=== PATIENT | female | born 1995 | race African-American/Black ===

== ENCOUNTER 2020-02-22 01:33 | Emergency (ER) | payer SELFPAY ==
--- NOTE | 2020-02-22 01:47 | PDOC ---
History of Present Illness - General Stated Complaint: DIFFICULTY BREATHING/ASTHMA Time Seen by Provider: 02/22/20 01:46 - History of Present Illness Initial Comments: 02/22/20 01:47 HPI: 24 y/o F with hx of asthma recently moved from [place] 1 month ago presenting with asthma exacerbation. She reports being exposed to more pollen in the air here and the animal dander at her moms house. She reports SOB, dry cough, and wheezing and requiring increased albuterol puffs. She denies fever, chills, GALEANA, chest pain, abd pain, n/v PMHx: as noted above ROS: as noted SHx: Denies tobacco use; no alcohol use; +MJ rec drugs Allergies: NKDA ROS: GENERAL/CONSTITUTIONAL: No fever or chills. No weakness. HEAD, EYES, EARS, NOSE AND THROAT: No change in vision. No ear pain or discharge. No sore throat. CARDIOVASCULAR: No chest pain; + shortness of breath RESPIRATORY: +cough, wheezing GASTROINTESTINAL: No nausea, vomiting, diarrhea or constipation. GENITOURINARY: No dysuria, frequency, or change in urination. MUSCULOSKELETAL: No joint or muscle swelling or pain. No neck or back pain. SKIN: No rash NEUROLOGIC: No headache, vertigo, loss of consciousness, or change in strength/sensation. ENDOCRINE: No increased thirst. No abnormal weight change HEMATOLOGIC/LYMPHATIC: No anemia, easy bleeding, or history of blood clots. ALLERGIC/IMMUNOLOGIC: No hives or skin allergy. PE: GENERAL: Awake, alert, and fully oriented, no acute distress HEAD: No signs of trauma, normocephalic, atraumatic EYES: EOMI, sclera anicteric, conjunctiva clear ENT: Auricles normal inspection, hearing grossly normal, nares patent, oropharynx clear without exudates. Moist mucosa NECK: Normal ROM, no lymphadenopathy LUNGS: No increased work of breathing, symmetrical chest rise, diffuse BL wheezing HEART: Regular rate, regular rhythm, normal S1 and S2, no murmur, peripheral pulses 2+ and equal bilaterally. ABDOMEN: Soft, nondistended, nontender. No guarding, no rebound. No masses. No CVAT MUSCULOSKELETAL: FROM NEUROLOGICAL: Cranial nerves II through XII grossly intact. Normal speech, stable gait, no focal sensorimotor deficits SKIN: Warm, Dry, normal turgor, no rashes or lesions noted Past History - Medical History Allergies/Adverse Reactions: Allergies Allergy/AdvReac Type Severity Reaction Status Date / Time No Known Allergies Allergy Verified 02/22/20 02:28 Home Medications: Ambulatory Orders Albuterol Sulfate 0.042% [Ventolin 0.042% (Half-Strength) -] 02/22/20 Albuterol Sulfate Inhaler - [Ventolin HFA Inhaler -] 1 - 2 inh PO QID #1 inhaler 02/22/20 Azithromycin 250 mg PO DAILY 4 Days #4 tablet 02/22/20 predniSONE [Deltasone -] 40 mg PO DAILY 4 Days #8 tablet 02/22/20 Medical Decision Making - Medical Decision Making 02/22/20 04:26 24 y/o F with hx of asthma recently moved from [place] 1 month ago presenting with asthma exacerbation. VSS, AF. PE with diffuse BL wheezing. -shay hand x2, prednisone, siungular 02/22/20 04:27 wheezing and sxs improved following intervention DC with scripts for steroid, albuterol, abx rec f/u with pcp Discharge - Discharge Information Problems reviewed: Yes Clinical Impression/Diagnosis: Asthma Condition: Improved Disposition: HOME - Additional Discharge Information Prescriptions: Azithromycin 250 mg PO DAILY 4 Days #4 tablet predniSONE [Deltasone -] 40 mg PO DAILY 4 Days #8 tablet Albuterol Sulfate Inhaler - [Ventolin HFA Inhaler -] 1 - 2 inh PO QID #1 inhaler - Follow up/Referral - Patient Discharge Instructions Patient Printed Discharge Instructions: DI for Asthma -- Adult, Diet High in Fruits and Vegetables May Reduce Asthma Exacerbations Additional Instructions: Additional Instructions: Please return to the emergency department with any new or worsening symptoms or concerns including fever, worsening cough, worsening shortness of breath. Please follow up with your primary care physician within 72 hours. Please take prednisone 40mg daily for 4 days Please take azithromycin 250mg daily for 4 days Please take your albuterol inhaler per label instructions - Post Discharge Activity
[2020-02-22] MEDS ORDERED: methylPREDNISolone NA SUCC 125 MG/2 ML VIAL IVPUSH ONE (01:57)
[2020-02-22] MEDS ORDERED: ALBUTEROL SO4 2.5/IPRATROPIUM 0.5 INH SOL 3 ML VIAL.NEB. NEB ONE ×4 (01:57→03:51)
--- NOTE | 2020-02-22 01:58 | PDOC ---
Attending Attestation - Resident Resident Name: Chely Hoffmann - ED Attending Attestation I have performed the following: I have examined & evaluated the patient, The case was reviewed & discussed with the resident, I agree w/resident's findings & plan - HPI HPI: 02/22/20 02:03 Pt comes with asthma exacerbation. She moved in with mom; was living down in [place]. Now that she is here, she thimks the weather and cold and rain is causing her asthma to be exacerbated. Patient smokes pot too, which probably is not helping. We discussed the need for her to quit. - Physicial Exam PE: 02/22/20 03:03 Pt has wheezing throughout bilateral lung bradley. Pt is obese. Pt has no fever and no SOB; no audible wheeze, She is sepaking in full sentences. - Medical Decision Making 02/22/20 04:16 Pt feeling vastly improved with treatment in the ER and she will be given refill of meds. 02/22/20 04:21 Stable to go home Discharge - Discharge Information Problems reviewed: Yes Clinical Impression/Diagnosis: Asthma Condition: Improved Disposition: HOME - Additional Discharge Information Prescriptions: Azithromycin 250 mg PO DAILY 4 Days #4 tablet predniSONE [Deltasone -] 40 mg PO DAILY 4 Days #8 tablet Albuterol Sulfate Inhaler - [Ventolin HFA Inhaler -] 1 - 2 inh PO QID #1 inhaler - Follow up/Referral - Patient Discharge Instructions Patient Printed Discharge Instructions: Diet High in Fruits and Vegetables May Reduce Asthma Exacerbations - Post Discharge Activity
--- OUTSIDE RECORDS SUMMARY | 2020-02-22 01:59 | XMS ---
:1995 Author Organization [facility] Support Name Relationship Address Phone LOY Unavailable [address] [place] [address] LUIS MOTT MOTHER [address] [place] [address] Re-disclosure Warning The records that you are about to access may contain information from federally- assisted alcohol or drug abuse programs. If such information is present, then the following federally mandated warning applies: This information has been disclosed to you from records protected by federal confidentiality rules (42 CFR part 2). The federal rules prohibit you from making any further disclosure of this information unless further disclosure is expressly permitted by the written consent of the person to whom it pertains or as otherwise permitted by 42 CFR part 2. A general authorization for the release of medical or other information is NOT sufficient for this purpose. The Federal rules restrict any use of the information to criminally investigate or prosecute any alcohol or drug abuse patient.The records that you are about to access may contain highly sensitive health information, the redisclosure of which is protected by Article 27-F of the [facility] Public Health law. If you continue you may haveaccess to information: Regarding HIV / AIDS; Provided by facilities licensed or operated by the [facility] Office of Mental Health; or Provided by the [facility] Office for People With Developmental Disabilities. If such information is present, then the following [facility] mandated warning applies: This information has been disclosed to you from confidential records which are protected by state law. State law prohibits you from making any further disclosure of this information without the specific written consent of the person to whom it pertains, or as otherwise permitted by law. Any unauthorized further disclosure in violation of state law may result in a fine or usp sentence or both. A general authorization for the release of medical or other information is NOT sufficient authorization for further disclosure. Insurance Providers Payer name Policy type Policy ID Covered Covered constitution party's Policy P anival / Coverage constitution party ID relationship to Victor Inf ormation type victor SELF PAY SP INSURANCE
[2020-02-22] MEDS ORDERED: MONTELUKAST NA 10 MG TABLET PO ONE (02:02)
[2020-02-22] MEDS ORDERED: AZITHROMYCIN 500 MG TABLET PO ONE (02:10)
[2020-02-22] MEDS ORDERED: predniSONE 20 MG TABLET (UD) PO ONE (02:10)
[2020-02-22] MEDS ORDERED: MONTELUKAST NA 10 MG TABLET ONE (02:17)
[2020-02-22] MEDS ORDERED: AZITHROMYCIN IVPB 500 MG/250 ML BAG IVPB ONE (02:19)
[2020-02-22] MEDS ORDERED: AZITHROMYCIN 250 MG TABLET ONE (02:20)
[2020-02-22 02:26] VITALS: BP 120/68; PULSE 92; TEMP 98.3; BMI 39.4
== END 2020-02-22 04:22 | disposition home or self-care (01) ==
LOC: JER 01:33
PROC: 3E033NZ Introduction of Analgesics, Hypnotics, Sedatives into Peripheral Vein, Percutaneous Approach (ICD-10-PCS; principal; 2020-02-22)
PROC: 3E0F7GC Introduction of Other Therapeutic Substance into Respiratory Tract, Via Natural or Artificial Opening (ICD-10-PCS; 2020-02-22)
DX: J45.909 Unspecified asthma, uncomplicated (principal)
CPT/HCPCS: 99285-25